=== PATIENT | female | born 1990 | race Caucasian/White ===

== ENCOUNTER 2022-08-01 06:55 | Emergency (ER) | payer MEDICAID ==
[~2022-08-01] VITALS: Ht 165.1 cm; Wt 79.0 kg
[2022-08-01 07:32] VITALS: BP 119/70
== END 2022-08-01 11:26 | disposition home or self-care (01) ==
LOC: ER 06:56
DX: N93.9 Abnormal uterine and vaginal bleeding, unspecified (principal); R10.9 Unspecified abdominal pain
CPT/HCPCS: 99281; 99284

== ENCOUNTER 2022-09-27 20:09 | Emergency (ER) | payer MEDICAID ==
[~2022-09-27] VITALS: Ht 165.1 cm; Wt 79.5 kg
[2022-09-27 20:10] VITALS: BP 124/60
[2022-09-27 20:57] LABS: CLARITY,URINE CLOUDY (Clear); COLOR,URINE YELLOW (Yellow); GLUCOSE, URINE NEGATIVE (Neg); KETONES,URINE NEGATIVE (Neg); LEUKOCYTE ESTERASE ,URINE SMALL (Neg); NITRITES, URINE NEGATIVE (Neg); OCCULT BLOOD,URINE NEGATIVE (Neg); PH,URINE 6.5 (4.8-8.0); PROTEIN,URINE NEGATIVE (Neg)
[2022-09-27 20:59] LABS: URINE HCG POSITIVE (NEG)
[2022-09-27 21:11] LABS: UA COLLECTION TYPE CLN CATCH MIDSTREAM
[2022-09-27 21:15] LABS: BACTERIA,URINE 2+ /HPF (Neg); MUCUS STRANDS MANY /LPF (Neg); RBC,URINE 0-2 /HPF (0-2); SQUAMOUS EPITHELIAL CELL,UR MANY /LPF (FEW)
[2022-09-27 21:17] LABS: AMORPHOUS PHOSPHATES 2+; TRANSITIONAL EPI CELLS,URINE FEW /HPF
== END 2022-09-27 21:43 | disposition home or self-care (01) ==
LOC: ER 20:09
DX: O26.891 Other specified pregnancy related conditions, first trimester (principal); Z3A.01 Less than 8 weeks gestation of pregnancy; F15.20 Other stimulant dependence, uncomplicated
CPT/HCPCS: 81001; 81025; 99283

== ENCOUNTER 2022-09-29 01:30 | Emergency (ER) | payer MEDICAID ==
[~2022-09-29] VITALS: Ht 165.1 cm; Wt 79.5 kg
[2022-09-29 01:37] VITALS: BP 136/79
== END 2022-09-29 01:59 ==
LOC: ER 01:30
DX: O26.891 Other specified pregnancy related conditions, first trimester (principal); F15.10 Other stimulant abuse, uncomplicated; Z76.0 Encounter for issue of repeat prescription
CPT/HCPCS: 99283